=== PATIENT | female | born 1970 | race Asian ===

== ENCOUNTER 2017-03-23 18:55 | Outpatient (CLI) | payer BC ==
[~2017-03-23 18:55] MED LIST: ACET5TAB36 PO; CIPRO500 MG PO
== END 2017-03-23 20:00 | disposition home or self-care (01) ==
LOC: US 18:55
DX: M79.605 Pain in left leg (principal)

== ENCOUNTER 2018-01-03 11:57 | Outpatient (CLI) | payer BC | END 2018-01-03 21:23 | disposition home or self-care (01) | LOC: MAMMO 11:57 | DX: Z12.31 Encounter for screening mammogram for malignant neoplasm of breast (principal) ==

== ENCOUNTER 2020-04-03 09:38 | Emergency (ER) | payer OTHER ==
[~2020-04-03] VITALS: Ht 167.6 cm; Wt 113.9 kg
[2020-04-03 09:48] VITALS: TEMP 97.5
[2020-04-03] MEDS ORDERED: ROBAXIN-750750 MG PO (10:50)
[2020-04-03] MEDS ORDERED: PANTOPRAZOLE 40MG TA PO (10:50)
[2020-04-03] MEDS ORDERED: AMLO2.5T PO (10:50)
[2020-04-03 10:51] LABS: PLATELET COUNT 197 K/uL (152-353)
[2020-04-03] MEDS ORDERED: IRON325 MG PO (10:51)
[2020-04-03] MEDS ORDERED: TIZA4TAB5 PO (10:52)
[2020-04-03] MEDS ORDERED: CYCL10TA35 PO (10:52)
[2020-04-03] MEDS ORDERED: MONT10TA PO (10:52)
[2020-04-03] MEDS ORDERED: COZAAR25 MG PO (10:53)
[2020-04-03] MEDS ORDERED: BUSPIRONE10 MG PO (10:53)
[2020-04-03] MEDS ORDERED: ABILIFY MYCITE10 MG PO (10:54)
[2020-04-03] MEDS ORDERED: CEPHALEXIN500 MG PO (10:55)
[2020-04-03] MEDS ORDERED: POLYMYXIN B/ OTIC (10:57)
[2020-04-03] MEDS ORDERED: HYDR10TA47 PO (10:58)
[2020-04-03 10:59] LABS: POTASSIUM 3.5 mmol/L (3.6-5.2); SODIUM 142 mmol/L (136-145)
[2020-04-03 12:40] VITALS: BP 155/81
== END 2020-04-03 12:54 | disposition home or self-care (01) ==
LOC: ED 09:38
PROVIDERS: Emergency Medicine Emergency Medical Services
DX: R07.89 Other chest pain (principal); S46.812A Strain of other muscles, fascia and tendons at shoulder and upper arm level, left arm, initial encounter
CPT/HCPCS: 80053; 83690; 83880; 84443; 84484; 85027; 93005; 99284

== ENCOUNTER 2020-07-25 14:31 | Outpatient (CLI) | payer OTHER ==
[~2020-07-25 14:31] MED LIST changes: +ABILIFY MYCITE10 MG PO; +AMLO2.5T PO; +BUSPIRONE10 MG PO; +CEPHALEXIN500 MG PO; +COZAAR25 MG PO; +CYCL10TA35 PO; +HYDR10TA47 PO; +IRON325 MG PO; +MONT10TA PO; +PANTOPRAZOLE 40MG TA PO; +POLYMYXIN B/ OTIC; +ROBAXIN-750750 MG PO; +TIZA4TAB5 PO
== END 2020-07-25 22:21 | disposition home or self-care (01) ==
LOC: US 14:31
PROVIDERS: ATTEND Nurse Practitioner Family
DX: R60.0 Localized edema (principal); M79.605 Pain in left leg

== ENCOUNTER 2021-09-29 15:01 | Outpatient (CLI) | payer OTHER | END 2021-09-29 19:14 | disposition home or self-care (01) | LOC: MAMMO 15:01 | PROVIDERS: ATTEND Nurse Practitioner Family | DX: Z12.31 Encounter for screening mammogram for malignant neoplasm of breast (principal); N64.59 Other signs and symptoms in breast | CPT/HCPCS: G0279 ==

== ENCOUNTER 2021-11-30 18:53 | Emergency (ER) | payer OTHER ==
[~2021-11-30] VITALS: Ht 167.6 cm; Wt 116.1 kg
[2021-11-30 21:15] VITALS: BP 138/77; TEMP 97.9
== END 2021-11-30 21:20 | disposition home or self-care (01) ==
LOC: ED 18:53
DX: J20.9 Acute bronchitis, unspecified (principal); U07.1 COVID-19
CPT/HCPCS: 87502; 87635; 87651; 99283; U0003